=== PATIENT | female | born 1985 | race Caucasian/White ===

== ENCOUNTER 2023-05-02 08:22 | Outpatient (RCR) | payer OTHER ==
[~2023-05-02 08:22] MED LIST: ALBUTEROL0.09 MG/A1 IH; BCP TD; CIPRO 250MG TA250 MG PO; ERYTHRO333 MG PO; FASTIN30 MG PO; FLEXERIL 1010 MG/TAB PO; FOLIC ACID 11 MG/TA1 PO; KEPPRA 500MG500 MG PO; MOBIC15 MG PO; MOTRIN 600600 MG/TAB PO; PERCOCET 325 MG1 TA2 PO; PHENERGAN W/CO120 ML PO; PREDNISONE 20MG20 MG PO; PRENATAL1 TA4 PO; ZITHROMAX 250M250 MG PO
== END 2023-05-10 ==
LOC: WSOH
DX: S46.811D Strain of other muscles, fascia and tendons at shoulder and upper arm level, right arm, subsequent encounter (principal); Y99.0 Civilian activity done for income or pay; G40.909 Epilepsy, unspecified, not intractable, without status epilepticus; M51.26 Other intervertebral disc displacement, lumbar region; E66.9 Obesity, unspecified

== ENCOUNTER 2023-06-09 14:18 | Outpatient (RCR) | payer OTHER | END 2023-06-10 | LOC: WSPT | DX: M25.511 Pain in right shoulder (principal) ==

== ENCOUNTER → 2023-07-10 | Outpatient (RCR) | payer OTHER | LOC: WSOH | DX: S46.811D Strain of other muscles, fascia and tendons at shoulder and upper arm level, right arm, subsequent encounter (principal); G40.909 Epilepsy, unspecified, not intractable, without status epilepticus; M51.36 Other intervertebral disc degeneration, lumbar region; E66.9 Obesity, unspecified; Y99.0 Civilian activity done for income or pay ==

== ENCOUNTER 2023-09-08 10:25 | Outpatient (RCR) | payer OTHER | END 2023-09-10 | disposition home or self-care (01) | LOC: WSPT | DX: M25.511 Pain in right shoulder (principal); Z98.890 Other specified postprocedural states ==

== ENCOUNTER 2023-11-06 08:30 | Outpatient (RCR) | payer OTHER | END 2023-11-09 | disposition home or self-care (01) | LOC: WSPT | DX: M25.511 Pain in right shoulder (principal); Z98.890 Other specified postprocedural states ==